=== PATIENT | female | born 1955 | race Two or more races ===

== ENCOUNTER → 2020-01-13 | Outpatient (CLI) | payer MEDICARE, OTHER ==
[~2020-01-13] VITALS: Ht 162.6 cm; Wt 69.9 kg
[~2020-01-13] MED LIST: APIX5TAB PO; DRON400T2 PO; LEVO50TA11 PO; METF-444 PO; METF500S7 PO; MULT-1250 PO; REGADENOSON 0.4 MG/5 ML PF SYG IVP SCH; ROSU20TA31 PO; SITA1TAB2 PO; TELM20TA8 PO
== END | disposition home or self-care (01) ==
LOC: SHCH 08:00
PROVIDERS: ATTEND Internal Medicine Cardiovascular Disease
DX: I25.10 Atherosclerotic heart disease of native coronary artery without angina pectoris (principal)
CPT/HCPCS: 78452; 93017; 96374; A9500 ×2; J2785

== ENCOUNTER 2020-01-16 05:56 | Day surgery (SDC) | payer OTHER ==
[2020-01-13 13:52] LABS: BASOPHILS % (AUTO) 0.7 % (0.0-5.0); EOSINOPHILS % (AUTO) 9.7 % (0.0-8.0); HEMATOCRIT 35.7 % (36-48); LYMPHOCYTES % (AUTO) 21.3 % (21.0-51.0); MEAN CORPUSCULAR HEMOGLOBIN 25.1 pg (27.0-33.0); MEAN CORPUSCULAR HGB CONC 30.5 g/dL (32.0-36.0); MEAN CORPUSCULAR VOLUME 82.3 fL (79-99); MONOCYTES % (AUTO) 5.9 % (3.0-13.0); NEUTROPHILS % (AUTO) 62.1 % (40.0-77.0); PLATELET COUNT (AUTO) 325 K/uL (130-400); RED BLOOD CELL COUNT(AUTO) 4.34 MIL/uL (4.00-5.50); WHITE BLOOD COUNT (AUTO) 12.3 K/uL (4.8-10.8)
[2020-01-13 13:59] LABS: CREATININE 1.1 mg/dL (0.5-1.5); POTASSIUM 4.4 mmol/L (3.5-5.1)
[2020-01-13 14:00] VITALS: BP 128/61
[2020-01-13 14:02] LABS: INR 1.09 (0.85-1.15); PARTIAL THROMBOPLASTIN TIME 29.4 SEC (26.3-35.5); PROTHROMBIN TIME 11.4 SEC (9.6-11.6)
[2020-01-16] VITALS (17 sets, daily range): BP systolic 100–142; BP diastolic 45–77
[~2020-01-16] VITALS: Ht 158.8 cm; Wt 70.8 kg
[~2020-01-16 05:56] MED LIST changes: -REGADENOSON 0.4 MG/5 ML PF SYG IVP SCH; +SODIUM CHLORIDE 0.9% 1000ML 1,000 ML IV SCH
[2020-01-16] MEDS ORDERED: FENTANYL CITRATE PF 50 MCG/1 ML 2ML VIAL ONE (09:48)
[2020-01-16] MEDS ORDERED: MIDAZOLAM HCL 1 MG/ML 2ML VIAL ONE (09:49)
--- NOTE | 2020-01-16 10:19 | NUR ---
Doctor Ansari arrived at 1006- spoke with pt and family timeout completed, no concerns voiced, adm 1mg of versed iv at 1012, and adm 50mcg of fentanyl iv at 1014, pt stable and adm 50mcg of fentanly iv at 1016, continued to monitor pt , adm 0.5mg iv versed at 1018 am ,pt stable. Pt still arousable vital signs stable per md adm 0.5mg of versed iv now. Doctor Ansari performed cardioversion of 200joules at 1028am, pt stable. Doctor Ansari performed a cardioversion at 200 joules at 1032am, pt stable, ekg ordered to verify. Procedure start time 1012am end time 1032am.
== END 2020-01-16 12:00 | disposition home or self-care (01) ==
LOC: DAH 05:56
PROVIDERS: ATTEND Internal Medicine Cardiovascular Disease
DX: I48.19 Other persistent atrial fibrillation (principal); I25.10 Atherosclerotic heart disease of native coronary artery without angina pectoris; Z95.1 Presence of aortocoronary bypass graft; I10 Essential (primary) hypertension; E13.59 Other specified diabetes mellitus with other circulatory complications; E78.5 Hyperlipidemia, unspecified; I11.0 Hypertensive heart disease with heart failure; I50.9 Heart failure, unspecified; Z79.01 Long term (current) use of anticoagulants; Z79.84 Long term (current) use of oral hypoglycemic drugs; Z79.899 Other long term (current) drug therapy
CPT/HCPCS: 36415; 80048; 85025; 85610; 85730; 92960; 93005 ×2; A4215; A4216; A4221; A4222; A4223 ×3; A4606; A4663; J2250; J3010; J7030; 99152